=== PATIENT | male | born 1940 | race Caucasian/White ===

== ENCOUNTER 2016-12-17 14:01 | Observation (INO) | payer MEDICARE, OTHER ==
[2016-12-17] VITALS (7 sets, daily range): BP systolic 126–164; BP diastolic 57–75; PULSE 59–70; RESP 16–21; O2SAT 95–97
[~2016-12-17] VITALS: Ht 185.4 cm; Wt 99.2 kg
--- NOTE | 2016-12-17 14:04 | ED.REPORT ---
HPI-Stroke / CVA Dec 17, 2016 ED Provider: Olu Doty MD 76 year old male anticoagulated on Plavix with a history of CVA, dementia, and diabetes presents to the ER accompanied by his due to speech deficits. Last known normal 13:30 today. reports garbled speech, "difficulty expressing himself", confusion, and blurred vision in the left eye. She denies seizure activity. It is difficult to obtain any history from the patient due to his current mental status. Nursing Notes Stated Complaint: STROKE SYMPTOMS Nursing Notes Reviewed: Yes Allergies: Coded Allergies: No Known Allergies (Verified , 12/17/16) General Time Seen by Provider: 14:03 Chief Complaint Slurred speech (Garbled) Hx Obtained From: Spouse Arrived By: Walk-in Time last known well 13:30 today Sudden in Onset?: Yes Symptom Duration: Since onset Progression Since Onset: Unchanged Associated with: Reports: Confusion Context Related History: Reports: Cerebrovascular accident Similar Sx Previous: Yes Risk Factors )( TPA Administration/Criteria Stroke Thrombolytic Therapy : TPA Considered: Yes Neurologist Contacted: Yes Disc Risk/Benefit/Alternatives: Yes TPA Administered Intravenously: No, not indicated NIH Stroke Scale Level of Consciousness: Alert and responsive (0) Ask Month & Age: 1 question right (1) Open/Close Eyes/Hand Chess Instructor: Performs both tasks (0) Horizontal EO Movements: None (0) Visual [place]: No visual loss (0) Facial Palsy: Normal symmetry (0) Right Arm Motor Drift (10s): No drift 10 sec (0) Left Arm Motor Drift (10s): No drift 10 sec (0) Right Leg Motor Drift (5s): No drift 5 sec (0) Left Leg Motor Drift (5s): No drift 5 sec (0) Limb Ataxia FNF/Heel-Henson: No ataxia (0) Sensation (Arms/Legs/Face): No sensory loss (0) Language Aphasia: Loss fluency ID matls (1) Dysarthria: No dysarthria, normal (0) Extinction/Inattention: No exctinct/inattent (0) NIHSS Score: 2 Time NIHSS Performed: 14:11 Date NIHSS Performed: Dec 17, 2016 )( CVA Risk Stratification Age >60 Hypertension Prior CVA/TIA Risk factors reviewed Past Medical History Past Medical History Denies ME, HTN Reports: GERD, Stroke Past Surgical History Right shoulder Reports: Appendectomy, Cataract surgery Reports: Knee replacement (bilateral) Smoking History Former Smoker Social History Alcohol Use: In recovery Other Social History: Good social support Review of Systems Unable to Obtain ROS Mental status Physical Exam Initial Vital Signs Vital Signs (First) Date Time Temp Pulse Resp B/P Pulse Ox O2 Delivery O2 Flow Rate FiO2 12/17/16 14:01 36.9 69 16 164/69 96 Room Air Initial VS: Reviewed Abdomen / GI: Soft, Non-tender, No guarding, No rebound, No distention Extremities: Vascular intact, Neuro intact, No swelling, No tenderness Skin: Warm, Dry, No cyanosis General/Constitutional: Awake, Alert, Well developed, Well nourished Head / Eyes: Atraumatic, Normocephalic Neck: Supple, Full range of motion, No swelling, Non-tender, No carotid bruit Respiratory / Chest: Breath sounds NL, Breath sounds = bilat, No respiratory distress, No rales, No rhonchi, No wheezing Cardiovascular: Heart rate NL, Regular rhythm, Heart sounds NL, No murmurs, Peripheral circulation NL Neurologic: No motor deficits, No sensory deficits Mental Status: Positive: Confused, Disoriented to time Speech: Positive: Garbled See the NIH Stroke Scale in the Risk section of this note. Interpretation & Diagnostics Lab Results Interpretation Result Diagram: 12/17/16 1415 12/17/16 1415 Test 12/17/16 14:15 White Blood Count 6.3th/mm3 (3.8-10.1) Red Blood Count 4.96mil/mm3 (4.40-5.80) Hemoglobin 15.3g/dL (13.8-17.2) Hematocrit 43.6% (41.0-50.0) Mean Corpuscular Volume 87.9fL (81-100) Mean Corpuscular Hemoglobin 30.8pg (27.0-35.0) Mean Corpuscular Hemoglobin Concent 35.1% (32.0-37.0) Red Cell Distribution Width 12.7% (12.3-15.4) Platelet Count 202bil/L (150-400) Neutrophils (%) (Auto) 59.2% (40-74) Lymphocytes (%) (Auto) 24.4% (14-46) Monocytes (%) (Auto) 11.7% (4-12) Eosinophils (%) (Auto) 3.6% (0-5) Basophils (%) (Auto) 0.6% (0-3) Prothrombin Time 9.9sec (8.1-12.5) Prothromb Time International Ratio 0.93ratio Activated Partial Thromboplast Time 25.0sec (22.8-33.0) Sodium Level 138mEq/L (134-144) Potassium Level 4.4mEq/L (3.5-5.2) Chloride Level 100mEq/L (97-108) Carbon Dioxide Level 21mmol/L (18-29) Blood Urea Nitrogen 11mg/dL (8-27) Creatinine 0.72mg/dL (0.76-1.27) Estimat Glomerular Filtration Rate 113mL/min (>59) Glucose Level 147mg/dL (60-99) Calcium Level 9.6mg/dL (8.5-10.1) Total Bilirubin 0.4mg/dL (0.0-1.2) Aspartate Amino Transf (AST/SGOT) 16U/L (0-50) Alanine Aminotransferase (ALT/SGPT) 17U/L (0-44) Alkaline Phosphatase 102U/L (25-160) Troponin T < 0.010ug/L (0.0-0.011) Total Protein 7.0g/dL (6.4-8.4) Albumin 4.4g/dL (3.4-5.0) Hold Mike Top Tube Received (Received) ECG Interpretation ECG Interpretation: Sinus rhythm, rate [address] T changes Time: 14:20 Interpreted by: ED physician CT Head Interpretation IMPRESSION: 1. No acute intracranial disease process. 2. Findings telephoned to Dr. Ritchie Doty on 12/17/16 at 1407 hrs. This study fulfills neurological imaging criteria for inclusion or exclusion of acute stroke therapies based on available published neurological guidelines. Dictated by: Larisa Elaine MD, PhD on 12/17/2016 at 14:11 Approved by: Larisa Elaine MD, PhD on 12/17/2016 at 14:15 Study: Head CT no contrast Interpretation / Wet Read by: Interpret - Radiologist, Discussed w radiologist Re-Eval/Medical Decision Med Decision/Clinical Course 76-year-old male history of stroke, diabetes, dementia presenting with sudden onset of garbled speech. Last known normal was 1:30. Patient was brought in by family member shortly thereafter. Code stroke was called immediately on arrival. CT head was performed emergently with no acute pathology or hemorrhage. NIH stroke scale was 2. Accu-Chek 134. Blood pressure stable 160/80. Consulted stroke neurology immediately. Plan was for TPA then prior to giving as the neurologist was evaluating the patient his symptoms resolved. Workup is normal here. Patient will be admitted for TIA stroke workup. Source of Hx: Old records Re-Evaluation/Progress #1: Time of Eval: 14:39 Re-Evaluation/Progress Note: Patient is currently being evaluated by Neurology at [facility] via video call. Symptoms have completely resolved. Not a TPA candidate. Re-Evaluation/Progress #2: Time of Eval: 15:32 Re-Evaluation/Progress Note: Discussed lab and imaging results and need for admission. Patient is amenable to the plan. All other questions addressed. Consultation #1: Referral / Consult Name: Larisa Elaine MD, PhD Consulted With: On-call physician (Radiology) Call Returned at: 14:07 Note: Dr. Elaine called to discuss head CT results. Consultation #2: Consulted With: Neurology ([facility]) Call Returned at: 14:25 Note: Discussed patient case with Dr. Diaz, [facility] Neurology, who will evaluate patient via video call. Consultation #3: Referral / Consult Name: Bryce Sims Consulted With: Hospitalist Call Returned at: 15:57 Sales And Service Specialist: Agrees with eval, Agrees with plan, Accepts admit Counseled Regarding: Diagnosis, Lab results, Need for admission Patient Discharge & Departure Impression: Primary Impression: CVA (cerebral vascular accident) Disposition: ADMITTED TO HOSPITAL Discharge Condition All VS Reviewed: Yes Condition: Stable Referrals: Leandro Hart MD (PCP) Crit Care Except Billable Proc Time Spent: 30-74 minutes (60) Services Performed: Patient management by me, Time spent at bedside, Reviewing test results, Reviewing imaging, Discussing patient care, Documentation in record, Time with fam/surrogate Scribe Attestation Portions of this note were transcribed by Hair Guillen. I, Dr. Doty, personally performed the history, physical exam and medical decision-making; I reviewed and confirmed the accuracy of the information in the transcribed note. Signed by: Christine Albert, 12/17/2016 at 15:58 copies to: Leandro Hart MD, Ben M MD Dec 17, 2016 14:04 HAIR GUILLEN Dec 17, 2016 14:05
--- NOTE | 2016-12-17 14:16 | DRSVH ---
PROCEDURE: CT BRAIN (TPA) ([id number]) INDICATIONS: Stroke, left-sided weakness, facial droop, speech difficulty. TECHNIQUE: Noncontrast 4.5 mm thick angled axial sections acquired from the foramen magnum to the vertex, with c oronal reformats. COMPARISON: None. FINDINGS: Image quality: Excellent. CSF spaces: Basal cisterns are patent. No extra-axial fluid collections. The ventricles are symmet bishop in size and shape. Brain: No intracranial bleeds or masses. There is cerebral volume loss for age, with resultant vent ricular and sulcal prominence. There are periventricular and deep white matter chronic small vessel ischemic changes. There is intracranial internal carotid artery atherosclerosis. Skull and face: Calvarium and visualized facial bones appear intact, without suspicious lesions. Sinuses: Visualized sinuses and mastoids are clear. IMPRESSION: 1. No acute intracranial disease process. 2. Findings telephoned to Dr. Ritchie Doty on 12/17/16 at 1407 hrs. This study fulfills neurological imaging criteria for inclusion or exclusion of acute stroke therapie s based on available published neurological guidelines. Dictated by: Larisa Elaine MD, PhD on 12/17/2016 at 14:11 Approved by: Larisa Elaine MD, PhD on 12/17/2016 at 14:15
[2016-12-17 14:24] LABS: BASOPHILS % (AUTO) 0.6 % (0-3); EOSINOPHILS % (AUTO) 3.6 % (0-5); MONOCYTES % (AUTO) 11.7 % (4-12); Mean Corpuscular Hemoglobin 30.8 pg (27.0-35.0); Mean Corpuscular Volume 87.9 fL (81-100); NEUTROPHILS % (AUTO) 59.2 % (40-74); Platelet Count 202 bil/L (150-400)
[2016-12-17 14:51] LABS: INR 0.93 ratio
[2016-12-17 14:55] LABS: TROPONIN T < 0.010 ug/L (0.0-0.011)
--- NOTE | 2016-12-17 15:38 | NUR ---
Evaluation completed. Please go to "Notes" then click on "Assessments and Notes" (bottom left corner of screen). Then select appropriate discipline tab on top of screen.
[2016-12-17] MEDS ORDERED: Ondansetron 2 mg/mL 2 mL Inj IVPUSH PRN ×2 (16:00→18:35)
[2016-12-17] MEDS ORDERED: Alum-Mag Hydrox-Simeth 30 mL Suspension PO PRN ×2 (16:00→18:35)
--- NOTE | 2016-12-17 16:06 | NUR ---
Report Report complete with DEBBIE Posey nurse.
--- NOTE | 2016-12-17 16:30 | NUR ---
Admission Pt arrived via wheelchair from ED accompanied by . VSS, denies any chest pain or SOB. Alert and oriented. Denies any numbness or tingling. Oriented to room and floor. Bed in lowest position, call light within reach, bed alarm on.
--- NOTE | 2016-12-17 18:27 | NUR ---
spiritual care: staff (late entry) supportive care to pt's in ER while he rec initial care/assessment.
[2016-12-17] MEDS ORDERED: Labetalol 5 mg/mL 4 mL Inj IVPUSH PRN (18:35)
[2016-12-17] MEDS ORDERED: Heparin 5,000 Unit/mL Inj SUBQ SCH (18:35)
[2016-12-17] MEDS ORDERED: Polyethylene Glycol (PEG) 17 Gm Powder PO PRN (18:35)
[2016-12-17] MEDS: Heparin 5,000 Unit/mL Inj SUBQ SCH (18:51)
--- NOTE | 2016-12-17 18:52 | PCM.HPMED ---
Subjective Date of Service Dec 17, 2016 Primary Provider: Admitting Physician: Bryce Sims Primary Care Physician: Leandro Hart MD Attending Physician: Bryce Sims Chief Complaint: Slurred speech History of Present Illness: 76 year old male with history of CVA (on Plavix), dementia, and diabetes presents to the ER accompanied by his due to speech deficits. Because of dementia patient is a very poor historian and thus most of the history is obtained from his and ED report. At around 13:30 today patient was noted to have garbled speech and "difficulty expressing himself". Patient also endorses blurred vision in the left eye. Patient presented to the ED and setup was made for TPA intervention but by the time [facility] tele-stroke service was contacted patient's symptoms completely resolved. He has been given a full dose aspirin in the ED. Patient and his otherwise deny any other new issues or symptoms although patient's notes that patient has been having ongoing and increasing difficulty with his gait. Allergies Coded Allergies: No Known Allergies (Verified , 12/17/16) Home Medications Unfortunately patient and his don't have the list. Awaiting family to bring home med list. Exam Vital Signs & I/O Vital Sign- Last 8 Hours Date Time Temp Pulse Resp B/P Pulse Ox O2 Delivery O2 Flow Rate FiO2 12/17/16 16:46 36.4 59 18 132/75 95 Room Air 12/17/16 16:31 63 12/17/16 15:02 64 21 126/57 96 Room Air 12/17/16 14:19 70 18 97 12/17/16 14:01 36.9 69 16 164/69 96 Room Air Lab & Micro Results Laboratory Tests Test 12/17/16 14:15 White Blood Count 6.3th/mm3 (3.8-10.1) Red Blood Count 4.96mil/mm3 (4.40-5.80) Hemoglobin 15.3g/dL (13.8-17.2) Hematocrit 43.6% (41.0-50.0) Mean Corpuscular Volume 87.9fL (81-100) Mean Corpuscular Hemoglobin 30.8pg (27.0-35.0) Mean Corpuscular Hemoglobin Concent 35.1% (32.0-37.0) Red Cell Distribution Width 12.7% (12.3-15.4) Platelet Count 202bil/L (150-400) Neutrophils (%) (Auto) 59.2% (40-74) Lymphocytes (%) (Auto) 24.4% (14-46) Monocytes (%) (Auto) 11.7% (4-12) Eosinophils (%) (Auto) 3.6% (0-5) Basophils (%) (Auto) 0.6% (0-3) Prothrombin Time 9.9sec (8.1-12.5) Prothromb Time International Ratio 0.93ratio Activated Partial Thromboplast Time 25.0sec (22.8-33.0) Sodium Level 138mEq/L (134-144) Potassium Level 4.4mEq/L (3.5-5.2) Chloride Level 100mEq/L (97-108) Carbon Dioxide Level 21mmol/L (18-29) Blood Urea Nitrogen 11mg/dL (8-27) Creatinine 0.72mg/dL (0.76-1.27) Estimat Glomerular Filtration Rate 113mL/min (>59) Glucose Level 147mg/dL (60-99) Calcium Level 9.6mg/dL (8.5-10.1) Total Bilirubin 0.4mg/dL (0.0-1.2) Aspartate Amino Transf (AST/SGOT) 16U/L (0-50) Alanine Aminotransferase (ALT/SGPT) 17U/L (0-44) Alkaline Phosphatase 102U/L (25-160) Troponin T < 0.010ug/L (0.0-0.011) Total Protein 7.0g/dL (6.4-8.4) Albumin 4.4g/dL (3.4-5.0) Hold Mike Top Tube Received (Received) Result Diagram: 12/17/16 1415 12/17/16 1415 Review of Systems: Constitutional: Negative, except as otherwise mentioned in the history above. Ophthalmologic: Negative, except as otherwise mentioned in the history above. Cardiovascular: Negative, except as otherwise mentioned in the history above. Respiratory: Negative, except as otherwise mentioned in the history above. Gastrointestinal: Negative, except as otherwise mentioned in the history above. Genitourinary: Negative, except as otherwise mentioned in the history above. Musculoskeletal: Negative, except as otherwise mentioned in the history above. Neurological: Negative, except as otherwise mentioned in the history above. Psychiatric: Negative, except as otherwise mentioned in the history above. Hematologic/Lymphatic: Negative, except as otherwise mentioned in the history above. Allergic/Immunologic: Negative, except as otherwise mentioned in the history above. PMH History of CVA and recurrent TIA's (first episode of stroke in 2003, had TIA's after that, second major stroke in 2011 at which time reportedly received TPA) Questionable history of single seizure per prior ED notes Diabetes mellitus Type II Sleep apnea Advancing demential over the past 2-3 year Surgical History shoulder and knee surgery. Family History Denies any family history of heart disease or cancer Social History Hx Alcohol Use: No Hx Substance Use: No Hx Tobacco Use: No Exam Vital Signs Vital Sign - Last Date Time Temp Pulse Resp B/P Pulse Ox O2 Delivery O2 Flow Rate FiO2 12/17/16 16:46 36.4 59 18 132/75 95 Room Air General: Alert, Cooperative, No Acute Distress, Other (oriented to place and president but not time) Head: Normal Eyes: PERRLA, EOMI, Scleral Anicteric Nose: Mucous Membr Moist/Hobgood Mouth: Mucous Membr Moist/[place] Neck: Supple Chest & Lungs: Chest Wall Normal, Clear to auscultation & percussion Cardiovascular: Regular Rate/Rhythm Pulses: NL carotid, radial, femoral, DP, PT Abdomen: Non-tender, Non-distended, Normoactive bowel tones, Soft Extremities: No cyanosis/clubbing/edma bilat Neurological: Grossly Neurologically Intact, Cranial Nerves 2-12 Intact, Normal Speech, Strength Normal 12/03 ext (bilat), Sensation Intact (grossly to soft touch) Lymphatic: Other Lymph Nodes (no significant lymphadenopathy) Lab and Diagnostics Result Diagram: 12/17/16 1415 12/17/16 1415 X-Rays, CTs and MRIs Date of Service: 12/17/16 1403 PROCEDURE: CT BRAIN (TPA) ([id number]) IMPRESSION: 1. No acute intracranial disease process. 2. Findings telephoned to Dr. Ritchie Doty on 12/17/16 at 1407 hrs. This study fulfills neurological imaging criteria for inclusion or exclusion of acute stroke therapies based on available published neurological guidelines. Dictated by: Larisa Elaine MD, PhD on 12/17/2016 at 14:11 Approved by: Larisa Elaine MD, PhD on 12/17/2016 at 14:15 12-lead ECG SR at about 70 bpm Assessment & Plan 76 year old male with history of CVA (on Plavix), dementia, and diabetes presents to the ER accompanied by his due to speech deficits. # Acute transient slurred speech and possible blurry vision of left eye, present on admission. Suspicious for acute TIA - Admit to Tele - Check MRI/MRA brain - Check Echo - Start Lipitor (until verify home meds) - Fasting lipid panel - Neurology consult to help with antiplatelet choice given patient already on Plavix and presumably had been on Aspirin before that - PT/OT evaluation - Permissive hypertension for now - Check UA to r/o UTI as exacerbating factor # History of diabetes type II - ISS for now - Check HgA1C - Verify home medications # Questionable history of single seizure per prior ED notes. Currently stable - Verify home meds - Followup with neurology consult # Dementia unknown type. Chronic. Ongoing - Verify home meds - Followup with neurology consult # Possible sleep apnea - Verify with family if he uses CPAP or not Expected length of hospital stay is less than 2 midnights. GI Prophylaxis: Not indicated VTE Prophylaxis: Sub-Q Heparin (Unfractionated) Resuscitation Status: DNR/DNI:Do Not Resuscitate/Intubate (discussed and verified with patient's ) Time spent 60 min Bryce Sims Dec 17, 2016 18:51
[2016-12-17] MEDS ORDERED: PHN100C PO (19:43)
[2016-12-17] MEDS ORDERED: LISI-567 PO (19:43)
[2016-12-17] MEDS ORDERED: PHEN50TA2 PO (19:43)
[2016-12-17] MEDS ORDERED: CITA10TA9 PO (19:46)
[2016-12-17] MEDS ORDERED: ASPI81TA3 PO (19:46)
[2016-12-17] MEDS ORDERED: LOVA40TA PO (19:46)
[2016-12-17] MEDS ORDERED: CLOP75TA28 PO (19:46)
[2016-12-17] MEDS ORDERED: METF1000 PO (19:46)
--- NOTE | 2016-12-17 20:19 | DRSVH ---
PROCEDURE: US BILATERAL DUPLEX DOPPLER IMAGING OF THE CAROTIDS ([id number]) INDICATIONS: R/O Carotid Disease if no MRA or CTA Neck TECHNIQUE: Color and pulse Doppler interrogation was performed of both carotid systems, with image documentation and velocity measurements. COMPARISON: [facility], CT, BRAIN (TPA), 12/17/2016, 13:56. FINDINGS: All stenosis calculations are based on NASCET criteria. Right side: Common carotid artery peak systolic velocity: 99 cm/sec. Internal carotid artery peak systolic velocity: 105 cm/sec. Internal carotid artery end diastolic velocity: 13 cm/sec. External carotid artery peak systolic velocity: 207 cm/sec. ICA/CCA peak systolic ratio: 1.1. Vieyra scale imaging description: Minimal soft plaque Percent internal carotid artery stenosis: Less than 50% stenosis. Vertebral artery: Flow direction is antegrade. Left side: Common carotid artery peak systolic velocity: 105 cm/sec. Internal carotid artery peak systolic velocity: 88 cm/sec. Internal carotid artery end diastolic velocity: 11 cm/sec. External carotid artery peak systolic velocity: 162 cm/sec. ICA/CCA peak systolic ratio: 0.8. Vieyra scale imaging description: Minimal soft plaque Percent internal carotid artery stenosis: Less than 50% stenosis. Vertebral artery: Flow direction is antegrade. IMPRESSION: Less than 50% stenosis within the proximal internal carotid arteries bilaterally. Dictated by: Too Isbell M.D. on 12/17/2016 at 20:16 Approved by: Too Isbell M.D. on 12/17/2016 at 20:17
[2016-12-17 20:33] LABS: APPEARANCE,URINE CLEAR (CLEAR,HAZY); COLOR,URINE YELLOW (YELLOW)
[2016-12-17 20:34] LABS: OCCULT BLOOD,URINE NEGATIVE (NEGATIVE); PH,URINE 6.5 (5.0-8.0); UROBILINOGEN,URINE NORMAL (NORMAL)
[2016-12-17] MEDS ORDERED: LORazepam 0.5 mg Tablet PO ONE (20:50)
--- NOTE | 2016-12-17 21:00 | NUR ---
Claustrophobia Nurse notified by critical care technician, Ariadne, that the pt required ativan PO prior to last MRI Pt verified that this was true ( as well agreed) PO ativan ordered by night hospitalist in order for pt to complete MRI
[2016-12-17] MEDS: Insulin Human REGular 300 Unit/3 mL Inj SUBQ SCH (21:07)
[2016-12-17] MEDS: Phenytoin 100 mg ER Capsule PO SCH (22:47)
[2016-12-18] VITALS (8 sets, daily range): BP systolic 125–144; BP diastolic 65–78; PULSE 58–66; RESP 16–20; O2SAT 95–98
[2016-12-18 06:12] LABS: Mean Corpuscular Hemoglobin 30.7 pg (27.0-35.0); Mean Corpuscular Volume 88.7 fL (81-100)
--- NOTE | 2016-12-18 08:12 | DRSVH ---
PROCEDURE: MRI STROKE PROTOCOL ([id number]) Pre- and post-contrast brain MRI, non-contrast brain MR angiogram, pre- and postcontrast neck MR estelle ogram INDICATIONS: WEAKNESS,CONFUSION,HISTORY OF CVA TECHNIQUE: Brain: Noncontrast axial T1 spin echo, axial T2 fast spin echo, sagittal and axial FLAIR, coronal T2 fast spin echo, axial gradient echo, axial diffusion and ADC through the brain. After the administr ation of contrast, axial 3D VIBE of the cranial vasculature and brain. Brain MRA: Non-contrast 3-D time of flight MR angiogram, with multiple bulcqqm-gbwdexufs-pgkqkdyvvz (MIP) reformats performed. Neck MRA: Axial and sagittal TruFISP through the neck. Coronal dynamic MR angiogram during administ ration of contrast in the arterial and venous phases, with 3-dimenstional synfrtd-hjeibwiny-xbqfclaxe n (MIP) reformats constructed from subtraction images. COMPARISON: [facility], CT, BRAIN (TPA), 12/17/2016, 13:56. [facility], MR, STROKE PROTOCOL (PNL), 06/18/2006, 8:14. FINDINGS: Image quality: Excellent. BRAIN: CSF spaces: Ventricles are normal in size and shape. Basal cisterns are patent. No extra-axial flu id collections. Brain: No intracranial bleeds or mass effects. There is moderate cerebral volume loss. Mild perivent ricular white matter chronic small vessel ischemic changes are present. Diffusion weighted images sh ow no acute ischemic insults. Brainstem appears normal. Normal intravascular flow voids are present . No abnormal intracranial enhancement. Skull and face: Calvarial marrow signal is normal. Orbits appear normal. Sinuses: Sinuses and mastoids are clear. BRAIN MR ANGIOGRAM: Anterior circulation: Intracranial internal carotid arteries are normal in size and enhancement. Th e flow within the paired anterior cerebral arteries is normal and symmetric. The flow within the mid dle cerebral arteries is normal and symmetric. The anterior communicating artery is seen. No stenos es, occlusions, or aneurysms. Posterior circulation: The visualized portions of the vertebral arteries demonstrate normal caliber, and join to form a normal appearing basilar artery. The flow within the posterior cerebral arteries is normal and symmetric. No stenoses, occlusions, or aneurysms. NECK MR ANGIOGRAM: Carotids: Great vessels demonstrate a conventional anatomy as they arise from the aortic arch. The origins of the common carotid arteries appear patent. The calibers and courses of both common caroti d arteries are normal. The bifurcation regions appear normal bilaterally. The internal carotid kaitlin kristine demonstrate normal course and caliber. Posterior circulation: The origins of the vertebral arteries appear patent. More superior portions of both vertebral arteries demonstrate normal course and caliber, and join to form a normal appearing basilar artery. Miscellaneous: Subclavian arteries appear patent. There is mild stenosis (30%) of the proximal righ t subclavian artery. Pre-contrast images through the neck show no soft tissue abnormalities. IMPRESSION: BRAIN MRI: 1. No acute intracranial abnormalities. 2. Moderate cerebral volume loss and mild chronic microvascular ischemic changes. BRAIN MR ANGIOGRAM: No high-grade stenosis or occlusion in anterior or posterior circulations. NECK MR ANGIOGRAM: 1. No significant stenosis or occlusion in the carotid arteries bilaterally. 2. No significant stenosis or occlusion the major arteries bilaterally. 3. Mild (~30%) stenosis of the right subclavian artery. The estimate of stenosis included in the report of the imaging study was calculated using the NASCET method Dictated by: Betsy Lima M.D. on 12/18/2016 at 8:11 Transcribed by: JANICE on 12/18/2016 at 8:12 Approved by: Betsy Lima M.D. on 12/18/2016 at 9:20
[2016-12-18] MEDS: Insulin Human REGular 300 Unit/3 mL Inj SUBQ SCH ×4 (08:59→21:00)
[2016-12-18] MEDS: Heparin 5,000 Unit/mL Inj SUBQ SCH ×2 (08:59→21:00)
--- NOTE | 2016-12-18 10:29 | NUR ---
Case Management: MARIA given and explained to pt. Ester LISARN
--- NOTE | 2016-12-18 10:54 | NUR ---
Evaluation completed. Please go to "Notes" then click on "Assessments and Notes" (bottom left corner of screen). Then select appropriate discipline tab on top of screen.
--- NOTE | 2016-12-18 15:06 | NUR ---
Social Work Note - Initial Assessment/Readiness for Discharge: D/A: See Initial Assessment. The Pt is a 76 y/o male that was admitted under observation status for TIA. Readmission Risk Score 3. The Pt's PCP is MD Leandro Hart and his primary insurance is Medicare with a [employer] supplement, no LTC or VA benefits reported. EMR reviewed. SW met with the Pt and the Pt's to explain role and discuss discharge planning. The Pt lives independently in a one story home with loft in [place] with his . The Pt sleeps in the loft that has a flight a carpeted steps leading into it, no concerns reported. The Pt does not have an Advanced Directive on file, paperwork given. The Pt continued to drive prior to his hospitalization, uses a cane daily, and has no HH/SNF history. PT eval completed, recommending discharge home with spouse SBA and possible OtPt PT. Recommendations reviewed with Pt and . 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 Pt does not qualify for HH due to lack of homebound status. Neurology consult pending. Pt and family deny any needs at this time, SW to follow if needs arise. P: The Pt likely to discharge home when medically stable with family providing POV transportation. Family to assist with SBA, as needed. Neurology consult pending. Pt and family deny any needs at this time, SW to follow if needs arise. YUN Ferris Welding Machine Operator Friction Addendum: 12/18/16 at 1515 by BRANDI CHAVIS SS Amended: Links added. Addendum: 12/18/16 at 1655 by JAIME LONG GERMAN has reviewed note. YUN Alexander
--- NOTE | 2016-12-18 16:34 | DRSVH ---
[facility] [address] [place] [address] Echocardiogram Report Name: REGINA RECINOS WStudy Date: 12/18/2016 Height: 73 in Hospital Exam Location: [facility] Weight: 220 lb Gender: Male BSA: 2.2 m2 : 1940 Age: 76 yrs BP: 131/65 mmHg Reason For Study: TIA Ordering Physician: HOSPITALIST [facility] Performed By: Chris Rosales Referring Physician: Ariana QUARLES Interpretation Summary 1. Normal left ventricular size, wall thickness and systolic function with an estimated EF of 60-65% 2. Normal right ventricular size and systolic function 3. No evidence for valvular pathology Compared to the previous study of 2005 (images reviewed), no significant change other than an increase in the diameter of the ascending aorta (previously measured at 3.6 cm) Procedure: A two-dimensional transthoracic echocardiogram with color flow and Doppler was performed. The study quality was technically adequate. Comparison is made with the echocardiogram of 07/11/06. A saline contrast injection was performed to assess for cardiac shunting. The patient was in normal sinus rhythm during the exam. Left Ventricle: The left ventricle is normal in size. There is normal left ventricular wall thickness. Mildly elevated outflow tract velocities. The ejection fraction is estimated to be 60-65%. There are no focal wall motion abnormalities. Right Ventricle: The right ventricle is normal in size and function. Atria: The left atrium is mildly dilated. Right atrial size is normal. Possible chiari network. No color doppler evidence for an ASD. A saline contrast study without Valsalva showed no interatrial shunt. No images with Valsalva available for review. Mitral Valve: The mitral valve is normal in structure and function. There is trace mitral regurgitation. Aortic Valve: The aortic valve is trileaflet. The aortic valve opens well. No aortic regurgitation is present. Tricuspid Valve: The tricuspid valve leaflets are thin and pliable. There is trace tricuspid regurgitation. The right ventricular systolic pressure is estimated at 21 mmHg assuming a right atrial pressure of 3 mm Hg. Pulmonic Valve: The pulmonic valve is normal in structure and function. There is no pulmonic valvular regurgitation. Great Vessels: The aortic root is normal size. The ascending aorta is mildly enlarged. The diameter of the ascending aorta is 3.8 cm. The pulmonary artery is normal size. The IVC is of normal diameter and collapses greater than 50% with a sniff. This suggests a low right atrial pressure of 3 mm Hg. Pericardium/ Pleura There is no pericardial effusion. There is no pleural effusion. MMode/2D Measurements & Calculations LVIDd: 5.0 cm RA long axis LVOT diam LVIDs: 3.1 cm LA A2 area: 22.9 cm FS: 39.4 % LA A4 area: 24.5 cm RA area AoV Opening EPSS: 0.79 cm LA length (vol): 5.5 cm IVSd: 0.88 cm LA vol: 86.6 ml : 17.1 cm Ao root diam LVPWd: 1.1 cm LA vol index RA vol : 57.3 ml Aortic Jxn RA IVC diam: 1.4 cm : 25.6 mm2 asc Aorta Diam: 3.8 cm LV carrillo. diameter/BSA LV sys. diameter/BSA (cm/m^2): 2.3 (cm/m^2): 1.4 Doppler Measurements & Calculations Ao V2 max MV E max anton MV E/A: 0.72 TR max anton : 128.9 cm/sec : 67.3 cm/sec Med Peak E' Anton : 212.1 cm/sec Ao max P.6 mmHg MV A max anton TR max PG Ao mean P.1 mmHg : 93.8 cm/sec E/E' med: 10.4 : 18.0 mmHg LVOT Max Anton Pulm A Revs Dur PA V2 max : 113.8 cm/sec : 81.0 cm/sec MV A dur PA mean PG ANGEL(I,D): 3.5 cm : 0.17 sec sev ratio: 0.87 PA Accel Time : 0.11 sec MV dec time: 0.23 secAo V2 mean LV V1 max PG PA V2 mean : 98.7 cm/sec : 60.4 cm/sec Ao V2 VTI: 29.6 cm LV V1 VTI : 25.7 cm ANGEL(V,D): 3.5 cm2 ANGEL indexed to BSA Pulm A Revs Dur - MV (cm^2/m^2): 1.6 A Dur: -0.07 msec Reading Physician:04:33 PM
--- NOTE | 2016-12-18 16:48 | NUR ---
Social Work Note - Discharge: Data: he Pt is a 76 y/o male that was admitted under observation status for TIA. Per EMR the pt is cleared for discharge and is up and independent in the room. PT has evaluated pt and is recommending outpatient PT. No further needs assessed at this time. Assessment: Pt who is independent at baseline. Plan: Pt to discharge home with family providing POV transportation. No further needs assessed. YUN Calvo
--- NOTE | 2016-12-18 17:12 | PCM.CHPMED ---
Subjective Date of Service: Dec 18, 2016 Provider requesting consult: Bryce Sims Primary Physician: Admitting Physician: Bryce Sims Primary Care Physician: Leandro Hart MD Attending Physician: Bryce Sims Admit Status: From the Emergency Department Chief Complaint: Chief Complaint: TIA. . History of Present Illness: Neurology Consultation Note: Attending Dr. 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 Last known normal was at 13:30 on 12/17/16. The HPI was predominately taken from the due to patient's history of dementia and he was receiving an echocardiogram at the time of the interview. The patient's reports that he was having difficulty with word finding and his speech was garbled. She then decided to take him to the ED. On the way to the hospital the patient reported blurred vision in the left eye. She denies any seizure like activity including convulsions and blank starring. The patient did not have any unilateral weakness, paraesthesias, or facial droop. His NIH stroke score was 2 per the ED physician. His symptoms resolved while he was in the ED after 1-2 hours, therefore, he was not given tPA. He reports after his symptoms resolved he had a left-sided headache. He does have chronic left-sided weakness and paraesthesias from his previous CVA in 2011. He uses a cane for ambulation on the right. He is also very heard of hearing. The patient does have a history of a seizure 3-4 years ago in which the patient experienced convulsions and was unresponsive. The reports the episode as frightening and reports that he had a blank stare and looked like he as though "he was screaming help me from inside." The patient was started on Dilantin per his PCP. The patients readily admits that there are nights when they do not remember to take his medicine. She also reports that there are nights when he is shaking in bed very early in the morning, which roughly occurs 1-2 times per month. PCP is Dr. Creelman . Review of Systems: A comprehensive review of systems was conducted with the patient and found to be negative except as above in the History of Present Illness. . PMH Past Medical History 1. History of CVA and recurrent TIA's (first episode of stroke in 2003, had TIA 's after that, second major stroke in 2011 at which time reportedly received TPA ). 2. History of single seizure per prior ED notes. 3. Diabetes mellitus type II, non-insulin using. 4. Sleep apnea not on CPAP. 5. GERD. 6. Advancing dementia over the past 2-3 year. 7. Hyperlipidemia. . Bedside Blood Glucose: 142 Surgical History 1. Right rotator cuff repair. 2. Appendectomy. 3. Bilateral cataract removal. 4. Left partial TKA. 5. Tonsillectomy. . Home Medications Aspirin 81 mg before bedtime. Citalopram 20 every morning. Dilantin 50 mg every morning and 300 mg every night. Lovastatin 40 mg before bedtime. Lisinopril 20 mg daily. Metformin 1000 mg twice daily with meals. Plavix 75 mg before bedtime. . Allergies: Coded Allergies: No Known Allergies (Verified , 12/17/16) Family History Family History Mother of an NH at [id number]-ill. Father of prostate cancer. Two brothers, one with heart issues and the other one is healthy. Hillary who had a massive CVA at 48 years old (possibly related to drug abuse) which left her paralyzed and wheelchair bound. . 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 He has 2 children of of his own , a son who is healthy and a daughter who had a CVA at 48 years old. . Exam Vital Signs Vital Sign - Last Date Time Temp Pulse Resp B/P Pulse Ox O2 Delivery O2 Flow Rate FiO2 12/18/16 11:01 63 12/18/16 09:49 36.5 18 125/65 98 Room Air Intake and Output 12/17/16 12/17/16 12/18/16 Cumulative From/Thru 15:00 23:00 07:00 12/17/16 14:01 - 12/18/16 06:22 Intake Total 400 ml 250 ml 650 ml Output Total 300 ml 950 ml 1250 ml Balance 100 ml -700 ml -600 ml Intake Oral 400 ml 250 ml 650 ml Output Urine Total 300 ml 950 ml 1250 ml Additional Information: General: Elderly gentleman lying in bed and in no acute distress, well-developed , well-nourished, appropriately interactive. HEENT: Normocephalic, atraumatic. External ears without defect. Hard of hearing. Pupils equal, round, and reactive to light and accommodation. Anicteric sclerae, moist conjunctivae, and no lid lag. Oropharynx free of erythema and cobble stoning with moist mucosa. Neck: Supple with full range of motion. No jugular venous distension. No bruits. No lymphadenopathy or thyromegaly. Cardiovascular: Regular rate and rhythm without murmurs, rubs, or gallops. Pulmonary: Clear to auscultation bilaterally with no crackles, wheezes, or rhonchi. Normal respiratory effort with no use of accessory muscles. Abdomen: Soft, nontender, nondistended, bowel tones present. No hepatosplenomegaly or masses appreciated. Extremities: No clubbing, cyanosis, or edema. Skin: Normal temperature, turgor, and texture; no rash, ulcers, or subcutaneous nodules appreciated. Psychiatric: Normal mood and affect. Neurological: Mental status: He is awake, alert and oriented to person only. Speech clear, mild expressive aphasia, with intact comprehension. Cranial nerves: Pupils equal, round and reactive to light. Extraocular movements were smooth and conjugate with no evidence of nystagmus. Face appeared symmetrical. Facial sensation was intact to light touch and temperature on the right but with marked facial numbness on left starting at the level of CN VII V2 distribution that is chronic since CVA in 2011. The patient is chronically hard of hearing but auditory sensation was intact to finger snap. Palatal elevation was symmetrical. Tongue was midline. Sternocleidomastoid and trapezii were +5/5 bilaterally. Motor: Normal tone and bulk. Muscle strength +5/5 on the right upper and lower extremity and +4/5 on the left upper and lower extremity. Sensation intact to light touch and temperature on the right but numbness present on left starting at the level of CN VII V2 distribution down to right upper extremity that is chronic since CVA in 2011. Deep tendon reflexes brisk +3 and symmetrical. Babinski and Teresa reflexes negative. Coordination: Finger to nose was intact on right without evidence of dysmetria but left finger to nose discoordinate with evidence of dysmetria. Gait was deferred. . Lab and Diagnostics Labs Item Value Date Time Hemoglobin A1c 5.9 % H 12/17/16 1415 Calcium Level 9.2 mg/dL 12/18/16 0550 Magnesium Level 2.0 mg/dL 12/18/16 0550 Result Diagram: 12/18/16 0550 12/18/16 0550 X-Rays, CTs and MRIs MRI STROKE PROTOCOL IMPRESSION: BRAIN MRI: 1. No acute intracranial abnormalities. 2. Moderate cerebral volume loss and mild chronic microvascular ischemic changes. BRAIN MR ANGIOGRAM: No high-grade stenosis or occlusion in anterior or posterior circulations. NECK MR ANGIOGRAM: 1. No significant stenosis or occlusion in the carotid arteries bilaterally. 2. No significant stenosis or occlusion the major arteries bilaterally. 3. Mild (~30%) stenosis of the right subclavian artery. The estimate of stenosis included in the report of the imaging study was calculated using the NASCET method Dictated by: Betsy Lima M.D. on 12/18/2016 at 8:11 US BILATERAL DUPLEX DOPPLER IMAGING OF THE CAROTIDS IMPRESSION: Less than 50% stenosis within the proximal internal carotid arteries bilaterally. Dictated by: Too Isbell M.D. on 12/17/2016 at 20:16 CT BRAIN (TPA) IMPRESSION: 1. No acute intracranial disease process. 2. Findings telephoned to Dr. Ritchie Doty on 12/17/16 at 1407 hrs. This study fulfills neurological imaging criteria for inclusion or exclusion of acute stroke therapies based on available published neurological guidelines. Dictated by: Larisa Elaine MD, PhD on 12/17/2016 at 14:11 . 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 Assessment: Probable acute TIA, present on admission. Active. Impression: The patient presented with expressive aphasia, garbled speech, blurry vision in left visual field. His last known normal was at 13:30 on 12/17/16. There was no seizure like activity although the patient has a history of seizures and is on Dilantin for which the endorses missing evening doses periodically. The patient did not have any unilateral weakness, paraesthesias, or facial droop. His NIH stroke score was 2 per the ED physician. His symptoms resolved while he was in the ED after 1-2 hours, therefore, he was not given tPA. Imaging studies have been negative and do not reveal even his prior CVA. He reports after his symptoms resolved he had a left-sided headache. He does have chronic left-sided weakness and paraesthesias from his previous CVA in 2011. His CVA risk factors are hyperlipidemia, former smoker, and diabetes mellitus type II. Differential includes breakthrough seizures. Recommendations: 1. Obtain EEG to assess for epileptiform foci as seizures can sometimes be mistaken for dementia. 2. Obtain Dilantin level to assess if this medication is therapeutic. If it is not therapeutic we may have to increase the dosage as patient could potentially be having undiagnosed breakthrough seizures. 3. Order a cholesterol panel and switch to a high potency statin of LDL is not < 70. Continue to control DM type II tightly for which the patient is well controlled with an A1C of 5.9%. 4. Continue stroke protocol with PT/OT/ST evaluations and neuro checks and fall precautions. 5. Continue Plavix. May stop ASA as the patient does not have a history of CV disease or PVD. 6. Outpatient evaluation for different CPAP mask and setting adjustments. Thank you for this most interesting consult. Problems: GI Prophylaxis: Not indicated VTE Prophylaxis: Sub-Q Heparin (Unfractionated) VTE Mechanical Devices: Intermittant Pneumatic CD Resuscitation Status: DNR/DNI:Do Not Resuscitate/Intubate (discussed and verified with patient's ) Attending Statement Seen and examined with resident. Agree with above. Corina Stanton DO Dec 18, 2016 11:44 Adilson Nolan MD January 13, 2017 01:16
--- NOTE | 2016-12-18 18:24 | NUR ---
Notes from Patient's wanted to let Dr. Borges know that she noticed increase confusion in her in the last 3 months.
--- NOTE | 2016-12-18 19:01 | PCM.PNMED ---
Subjective Date of Service Dec 18, 2016 Subjective denies any new issues/complaints Exam Vital Signs Vital Sign - Last Date Time Temp Pulse Resp B/P Pulse Ox O2 Delivery O2 Flow Rate FiO2 12/18/16 18:21 36.7 59 16 136/73 98 Room Air Intake and Output 12/17/16 12/17/16 12/18/16 Cumulative From/Thru 15:00 23:00 07:00 12/17/16 14:01 - 12/18/16 06:22 Intake Total 400 ml 250 ml 650 ml Output Total 300 ml 950 ml 1250 ml Balance 100 ml -700 ml -600 ml Intake Oral 400 ml 250 ml 650 ml Output Urine Total 300 ml 950 ml 1250 ml Exam General: Alert, Cooperative, No Acute Distress Head: Normal Eyes: PERRLA, EOMI, Scleral Anicteric Nose: Mucous Membr Moist/[place] Mouth: Mucous Membr Moist/[place] Neck: Supple Chest & Lungs: Chest Wall Normal, Clear to auscultation bilat Cardiovascular: Regular Rate/Rhythm Pulses: NL carotid, radial, femoral, DP, PT Abdomen: Non-tender, Non-distended, Normoactive bowel tones, Soft Extremities: No cyanosis/clubbing/edema bilat Neurological: Grossly Neurologically Intact, Cranial Nerves 2-12 Intact, Normal Speech IVs and Medications Medications Reviewed: Medications were reviewed in detail Lab and Diagnostics Result Diagram: 12/18/16 0550 12/18/16 0550 X-Rays, CTs and MRIs Date of Service: 12/17/16 1403 PROCEDURE: CT BRAIN (TPA) ([id number]) IMPRESSION: 1. No acute intracranial disease process. 2. Findings telephoned to Dr. Ritchie Doty on 12/17/16 at 1407 hrs. This study fulfills neurological imaging criteria for inclusion or exclusion of acute stroke therapies based on available published neurological guidelines. Dictated by: Larisa Elaine MD, PhD on 12/17/2016 at 14:11 Approved by: Larisa Elaine MD, PhD on 12/17/2016 at 14:15 12-lead ECG SR at about 70 bpm Assessment & Plan 76 year old male with history of CVA (on Plavix), dementia, and diabetes presents to the ER accompanied by his due to speech deficits. # Acute transient slurred speech and possible blurry vision of left eye, present on admission. Suspicious for acute TIA - MR stroke protocol without acute finding - Echo unremarkable without change since 2005 - Appreciate neurology consult. Will Followup with recommendations - Continue with ASA + Plavix - Continue with Statin - Followup EEG ordered today by neurology consult. - PT/OT evaluation # Questionable history of single seizure per prior ED notes. Currently stable - Continue home dose Dilantin. Check Levle - EEG pr neurology consult as noted above # History of diabetes type II - ISS for now - HgA1C 5.9 - Hold home dose Metformin # History of hypertension. Currently stable - Hold home dose Lisinopril for now # Dementia unknown type. Chronic. Ongoing. stable - Followup with neurology consult recommendations # Possible sleep apnea - Verify with family if he uses CPAP or not Dispo: likely tomorrow pending EEG study and further neurology recommendations GI Prophylaxis: Not indicated VTE Prophylaxis: Sub-Q Heparin (Unfractionated) VTE Mechanical Devices: Intermittant Pneumatic CD Resuscitation Status: DNR/DNI:Do Not Resuscitate/Intubate (discussed and verified with patient's ) Bryce Sims Dec 18, 2016 19:01
[2016-12-18] MEDS: Phenytoin 100 mg ER Capsule PO SCH (21:00)
[2016-12-19 00:44] VITALS: BP 146/78; PULSE 59; RESP 18; O2SAT 94
--- NOTE | 2016-12-19 03:48 | NUR ---
neuro Pt is oriented to self only; couldn't remember the date or the hospital he's in. Right side is slightly weaker than the left. SBA to the BR; gait steady. uses call light to make needs known. bed alarm on for safety.
[2016-12-19 06:09] VITALS: PULSE 63
[2016-12-19 06:41] VITALS: BP 117/65; PULSE 63; RESP 18; O2SAT 96
[2016-12-19 08:00] VITALS: PULSE 67
[2016-12-19] MEDS: Insulin Human REGular 300 Unit/3 mL Inj SUBQ SCH ×2 (08:07→11:30)
[2016-12-19] MEDS: Heparin 5,000 Unit/mL Inj SUBQ SCH (08:34)
--- NOTE | 2016-12-19 08:36 | PROCED ---
[address] [address] EEG PATIENT: REGINA RECINOS : 1940 MR#: [id number] ADMIT: 12/17/2016 JOB ID: [id number] DATE: 12/18/2016 HISTORY: The patient is a 76-year-old man with spells. TECHNICAL DESCRIPTION: This digital EEG was recorded using 25 scalp and ear, and two EKG electrodes. It was reviewed in bipolar and referential montages following reformatting in the 10-20 [employer] Electrode Placement System. During the recording, the patient was noted to be awake, drowsy, and asleep. The background was composed of a 8.5-9 hertz, 10-20 microvolt symmetrical and reactive posterior dominant rhythm that attenuated with eye opening. The rest of the background was composed of low voltage faster frequencies. There was intermittent temporalis artifact. There was intermittent myogenic and movement artifact. Sleep was characterized by the attenuation of the alpha rhythm, the appearance of symmetrical vertex waves, heralding stage 1 of sleep. Stage 2 of sleep was not apparent. Hyperventilation was not performed. Photic stimulation from 1-30 hertz did not elicit any photic driving response. The EKG rhythm strip revealed a heart rate of 60-80 beats per minute with no apparent arrhythmias. IMPRESSION: This EEG performed in the awake, drowsy, and asleep states is within normal limits. A normal EEG does not exclude the possibility of seizure disorder. Clinical correlation is advised.
[2016-12-19 09:23] VITALS: BP 138/72; PULSE 61; RESP 19; O2SAT 97
--- NOTE | 2016-12-19 11:27 | PCM.DIMED ---
Discharge Instructions Date of Service Dec 19, 2016 Dates of Hospitalization Dec 17, 2016 at 16:17 Discharge Diagnosis Discharge Diagnosis probable TIA Medication Instructions Please continue your home medicine Diet Low fat, Low Sodium, Heart Healthy Activity No restrictions Patient Instructions You were hospitalized with concern for stroke, However, all of the workups didn' t show any evidence of stroke. EEG showed no signs of seizure activity. Please note that if this episode recurrent, this means you will likely get stroke soon, please seek for medical help. Please continue all of your medicine as you take at home Follow-up plan Please follow-up with your primary doctor in 1 week Follow-up Provider: Leandro Hart MD Follow-up with PCP in: 1 week Liliana Pepper MD Dec 19, 2016 11:27
--- NOTE | 2016-12-19 12:41 | NUR ---
Discharge Pt discharged home with via private vehicle. Pt and verbalized understanding of discharge and follow up instructions, personal belongings accounted for and left with pt. Pt A/O x 2 requested to walk out vs wheel chair, and pt was escorted out.
--- NOTE | 2016-12-20 15:57 | PCM.DC.MED ---
Discharge Summary Date of Service Dec 19, 2016 Dates of Hospitalization Date of Hospital Admission Dec 17, 2016 at 16:17 Date of Discharge: Dec 19, 2016 Providers: Admitting Physician: Bryce Sims Primary Care Physician: Leandro Hart MD Attending Physician: Bryce Sims Diagnosis at Time of Discharge Diagnosis at Time of Discharge probable TIA chronic # History of diabetes type II, # History of hypertension # likely vascular dementia # Possible sleep apnea Procedures XRay, CTs & MRIs Date of Service: 12/17/16 1403 PROCEDURE: CT BRAIN (TPA) ([id number]) IMPRESSION: 1. No acute intracranial disease process. 2. Findings telephoned to Dr. Ritchie Doty on 12/17/16 at 1407 hrs. This study fulfills neurological imaging criteria for inclusion or exclusion of acute stroke therapies based on available published neurological guidelines. Dictated by: Larisa Elaine MD, PhD on 12/17/2016 at 14:11 Approved by: Larisa Elaine MD, PhD on 12/17/2016 at 14:15 ECG 12 Lead SR at about 70 bpm Brief History HPI obtained by on 12/17 76 year old male with history of CVA (on Plavix), dementia, and diabetes presents to the ER accompanied by his due to speech deficits. Because of dementia patient is a very poor historian and thus most of the history is obtained from his and ED report. At around 13:30 today patient was noted to have garbled speech and "difficulty expressing himself". Patient also endorses blurred vision in the left eye. Patient presented to the ED and setup was made for TPA intervention but by the time [facility] tele-stroke service was contacted patient's symptoms completely resolved. He has been given a full dose aspirin in the ED. Patient and his otherwise deny any other new issues or symptoms although patient's notes that patient has been having ongoing and increasing difficulty with his gait. Hospital Course 76 year old male with history of CVA (on Plavix), dementia, and diabetes presents to the ER accompanied by his due to speech deficits. # Acute transient slurred speech and possible blurry vision of left eye, present on admission.Initially suspicious for acute TIA, MR stroke protocol, however showed not acute finding. Echo unremarkable without change since 2005. EEG also negative for seizure focus. Patient was noted to have decreased coordinating movement on Left hand, likely from previous stroke and noticed often forgetful and showed mild word finding difficulty. Given no acute findings , it was though to be possible TIA given high risks stroke, recommended to follow up with Neurology if this episode recur. chronic, stable # History of diabetes type II, - HgA1C 5.9, held home metformin # History of hypertension. stable w/o home lisinopril # Dementia unknown type. likely vascular given stroke hx. # Possible sleep apnea, stable Exam Vital Signs (Last) Date Time Temp Pulse Resp B/P Pulse Ox O2 Delivery O2 Flow Rate FiO2 12/19/16 09:23 36.8 61 19 138/72 97 Room Air Exam NAD, comfortably laying down on the bed no JVD, MMM, no LAD RRR, nl s1, s2 no mrg CTAB, no w,c S,ND,NT,normoactive BS+ warm, no edema, pulses 2/2 neuro: CN2-12 grossly intact, mild difficulty of FTN, dysdiadochokinesia on left hands motor 5/5 throughout, ambulate with normal gait Test 12/17/16 14:15 12/17/16 20:10 12/18/16 05:50 12/19/16 05:30 Neutrophils (%) (Auto) 59.2% (40-74) Lymphocytes (%) (Auto) 24.4% (14-46) Monocytes (%) (Auto) 11.7% (4-12) Eosinophils (%) (Auto) 3.6% (0-5) Basophils (%) (Auto) 0.6% (0-3) Prothrombin Time 9.9sec (8.1-12.5) Prothromb Time International Ratio 0.93ratio Activated Partial Thromboplast Time 25.0sec (22.8-33.0) Hemoglobin A1c 5.9% (4.8-5.6) Total Bilirubin 0.4mg/dL (0.0-1.2) Aspartate Amino Transf (AST/SGOT) 16U/L (0-50) Alanine Aminotransferase (ALT/SGPT) 17U/L (0-44) Alkaline Phosphatase 102U/L (25-160) Troponin T < 0.010ug/L (0.0-0.011) Total Protein 7.0g/dL (6.4-8.4) Albumin 4.4g/dL (3.4-5.0) Hold Mike Top Tube Received (Received) Urine Color Yellow (YELLOW) Urine Appearance Clear (CLEAR,HAZY) Urine pH 6.5 (5.0-8.0) Urine Specific [place] <1.005 (1.003-1.035) Urine Protein Negativemg/dL (NEG,TRACE) Urine Glucose (UA) Negativemg/dL (NEGATIVE) Urine Ketones Negativemg/dL (NEGATIVE) Urine Occult Blood Negative (NEGATIVE) Urine Nitrite Negative (NEGATIVE) Urine Bilirubin Negative (NEGATIVE) Urine Urobilinogen Normalmg/dL (NORMAL) Urine Leukocyte Esterase Negative (NEGATIVE) Urine RBC 0-2/hpf (0-2) Urine WBC 0-5/hpf (0-5) Urine Epithelial Cells Occasional/hpf (NONE-MOD) Urine Crystals None seen (NONE SEEN) Urine Bacteria None/hpf (NONE-FEW) Urine Hyaline Casts None/lpf (NONE) Urine Granular Casts None seen (NONE SEEN) Urine Waxy Casts None seen (NONE SEEN) Urine Red Blood Cell Casts None seen (NONE SEEN) Urine White Blood Cell Casts None seen (NONE SEEN) Urine Mucus None seen (None Seen) Urine Trichomonas None seen (NONE SEEN) Urine Yeast None (NONE SEEN) Urinalysis Comment None Urine Culture Reflexed Not indicated White Blood Count 6.1th/mm3 (3.8-10.1) Red Blood Count 4.86mil/mm3 (4.40-5.80) Hemoglobin 14.9g/dL (13.8-17.2) Hematocrit 43.1% (41.0-50.0) Mean Corpuscular Volume 88.7fL (81-100) Mean Corpuscular Hemoglobin 30.7pg (27.0-35.0) Mean Corpuscular Hemoglobin Concent 34.6% (32.0-37.0) Red Cell Distribution Width 12.8% (12.3-15.4) Platelet Count 181bil/L (150-400) Sodium Level 139mEq/L (134-144) Potassium Level 4.3mEq/L (3.5-5.2) Chloride Level 100mEq/L (97-108) Carbon Dioxide Level 22mmol/L (18-29) Blood Urea Nitrogen 10mg/dL (8-27) Creatinine 0.73mg/dL (0.76-1.27) Estimat Glomerular Filtration Rate 112mL/min (>59) Glucose Level 142mg/dL (60-99) Calcium Level 9.2mg/dL (8.5-10.1) Magnesium Level 2.0mg/dL (1.6-2.6) Phenytoin (Dilantin) Level 4.9uG/mL (10.0-20.0) Triglycerides Level 464mg/dL (0-149) Cholesterol Level 188mg/dL (100-199) LDL Cholesterol, Calculated 56.200mg/dL (0-99) VLDL Cholesterol 92.800mg/dL HDL Cholesterol 39mg/dL (>39) Cholesterol/HDL Ratio 4.82 (0.0-4.4) Discharge Medications Discharge Medications Aspirin Chew (Aspirin Chew) 81 Mg Chew 81 MG PO HS (Reported) Citalopram (Citalopram) 10 Mg Tablet 20 MG PO QAM (Reported) Clopidogrel (Clopidogrel) 75 Mg Tablet 75 MG PO HS (Reported) Lisinopril (Lisinopril) 20 Mg Tablet 20 MG PO QAM (Reported) Lovastatin (Lovastatin) 40 Mg Tablet 40 MG PO HS (Reported) Metformin (Glucophage) 1,000 Mg Tablet 1,000 MG PO BIDWM (Reported) Phenytoin Chew (Phenytoin Chew) 50 Mg Chew 50 MG PO QAM (Reported) PHENYTOIN 50 MG CHEW IN AM, 300 MG PHENYOTIN ER AT HS Phenytoin Sodium ER (Dilantin) 100 Mg Capsule 300 MG PO HS (Reported) PHENYTOIN 50 MG CHEW IN AM, 300 MG PHENYOTIN ER AT HS Additional med instructions Please continue your home medicine Followup Plan Disposition: home Follow-up plan Please follow-up with your primary doctor in 1 week Discharge Diet: Low fat, Low Sodium, Heart Healthy Discharge Activity: No restrictions Patient Instructions You were hospitalized with concern for stroke, However, all of the workups didn' t show any evidence of stroke. EEG showed no signs of seizure activity. Please note that if this episode recurrent, this means you will likely get stroke soon, please seek for medical help. Please continue all of your medicine as you take at home Follow-up Provider: Leandro Hart MD Follow-up with PCP in: 1 week Time spent 65min Liliana Pepper MD Dec 19, 2016 21:29
== END 2016-12-19 12:44 | disposition home or self-care (01) ==
LOC: SED 14:01 → MPC 16:17
PROVIDERS: ADMIT Internal Medicine; ATTEND Internal Medicine
DX: R47.81 Slurred speech (principal); H53.8 Other visual disturbances; R26.81 Unsteadiness on feet; G45.9 Transient cerebral ischemic attack, unspecified; E11.9 Type 2 diabetes mellitus without complications; I10 Essential (primary) hypertension; Z86.73 Personal history of transient ischemic attack (TIA), and cerebral infarction without residual deficits; K21.9 Gastro-esophageal reflux disease without esophagitis; F03.90 Unspecified dementia, unspecified severity, without behavioral disturbance, psychotic disturbance, mood disturbance, and anxiety; Z87.891 Personal history of nicotine dependence; Z79.82 Long term (current) use of aspirin; Z79.84 Long term (current) use of oral hypoglycemic drugs; Z79.02 Long term (current) use of antithrombotics/antiplatelets
CPT/HCPCS: 36415; 70450; 70549; 70553; 80048; 80053; 80061; 80185; 80186; 81000; 83036; 83735; 84484; 85025; 85027; 85610; 85730; 92610; 93005; 93880; 95819; 97162; 97167; 99291; A9585; C8929; G0378; J1644; J1815